=== PATIENT | male | born 2000 | race Caucasian/White ===

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

== ENCOUNTER 2020-05-14 23:38 | Emergency (ER) | payer BC ==
[~2020-05-14] VITALS: Ht 188 cm; Wt 150.0 kg
[~2020-05-14 23:38] MED LIST changes: +CORTISPORIN OTI10 ML AS; +ULTRAM50 M1 PO
[2020-05-15 00:28] LABS: IMMATURE GRANULOCYTES 0.1 % (0.0-5.0); MEAN CORPUSCULAR HGB 30.1 pG CALC (26.0-32.0); MEAN CORPUSCULAR HGB CONC 32.8 g/dL CAL (32.0-36.0); NEUT# 5.25 thou/uL (1.82-7.42); RED BLOOD COUNT 5.29 mill/uL (4.70-6.10); RED CELL DISTRI WIDTH 12.7 % (11.5-15.5)
[2020-05-15 00:29] LABS: HEMATOCRIT 48.5 % (39.0-50.0); HEMOGLOBIN 15.9 g/dl (14.0-18.0); MEAN CELL VOLUME 91.7 fL CALC (80.0-100.0)
[2020-05-15 00:42] LABS: ANION GAP 16 (6-22 (CALC)); BUN 14 mg/dL (9-20); BUN/CREATININE RATIO 12 (12-20 (CALC)); CARBON DIOXIDE 25 mmol/l (22-30); CHLORIDE 104 mmol/l (95-108); CREATININE 1.2 mg/dL (0.7-1.3); GFR > 60 ML/MIN (>=60 (CALC)); GFR FOR AFR.AMER. > 60 ML/MIN (>=60 (CALC)); POTASSIUM 4.1 mmol/l (3.5-5.1); SGOT/AST 41 u/l (17-59); SODIUM 141 mmol/l (137-146)
[2020-05-15 00:46] LABS: ALBUMIN 4.9 g/dL (3.2-5.0); ALKALINE PHOSPHATASE 71 u/l (38-126); BILIRUBIN, TOTAL 0.8 mg/dL (0.0-1.4); TOTAL PROTEIN 8.6 g/dL (6.3-8.2)
[2020-05-15 00:48] LABS: ACT PARTIAL THROMBO TIME 25.2 SECONDS (20.0-32.5); PROTHROMBIN TIME 10.2 SECONDS (9.0-12.5)
[2020-05-15 00:54] LABS: MYOGLOBIN 59 ng/mL (0 - 121)
[2020-05-15 01:12] LABS: D-DIMER 0.19 mg/L (0.19-0.60)
[2020-05-15 01:40] VITALS: BP 141/63
== END 2020-05-15 01:40 | disposition home or self-care (01) | DRG 313 ==
LOC: ED 23:38
PROVIDERS: Family Medicine
DX: R07.89 Other chest pain (principal); Z20.822 Contact with and (suspected) exposure to COVID-19